=== PATIENT | female | born 1970 | race Caucasian/White ===

== ENCOUNTER 2020-07-14 12:41 | Emergency (ER) | payer OTHER ==
[2020-07-14] MEDS ORDERED: SODIUM CHLORIDE 0.9% 1,000 ML IV STA (12:58)
--- NOTE | 2020-07-14 13:41 | ED ---
General Adult HPI - General Chief complaint: Shortness of Breath Stated complaint: Covid+, SOB Time Seen by Provider: 07/14/20 12:49 Source: patient, RN notes reviewed, old records reviewed Mode of arrival: ambulatory Limitations: no limitations - History of Present Illness Initial comments: 49-year-old female presents for evaluation of fatigue, fever, cough. Patient was diagnosed with coronavirus on July 05. She states her symptom onset was 3 days prior to this. She's had a total of 14 days of symptoms. She continues to have mild dyspnea. No central chest pain. No lower leg swelling or edema. Patient is otherwise healthy. She had been placed on oral steroids, antibiotics as well. - Related Data Home Medications Medication Instructions Recorded Confirmed Albuterol Sulfate [Ventolin HFA] 2 puff INHALATION RT-QID PRN 07/14/20 07/14/20 Levothyroxine Sodium [Synthroid] 100 mcg PO DAILY 07/14/20 07/14/20 Omeprazole 40 mg PO DAILY 07/14/20 07/14/20 Ondansetron HCl [Zofran] 4 mg PO Q4H PRN 07/14/20 07/14/20 predniSONE See Taper PO DAILY 07/14/20 07/14/20 Allergies Allergy/AdvReac Type Severity Reaction Status Date / Time No Known Allergies Allergy Verified 07/14/20 13:33 Review of Systems ROS Statement: Those systems with pertinent positive or pertinent negative responses have been documented in the HPI. ROS Other: All systems not noted in ROS Statement are negative. Past Medical History Past Medical History: Thyroid Disorder History of Any Multi-Drug Resistant Organisms: None Reported Past Surgical History: Ablation Past Psychological History: No Psychological Hx Reported Smoking Status: Former smoker Past Alcohol Use History: Occasional Past Drug Use History: None Reported General Exam Limitations: no limitations General appearance: alert, in no apparent distress Head exam: Present: atraumatic, normocephalic Eye exam: Present: normal appearance, PERRL ENT exam: Present: mucous membranes dry Neck exam: Present: normal inspection. Absent: tenderness, meningismus Respiratory exam: Present: rales (Trace). Absent: respiratory distress, wheezes Cardiovascular Exam: Present: regular rate, normal rhythm GI/Abdominal exam: Present: soft. Absent: distended, tenderness Extremities exam: Present: normal inspection, normal capillary refill. Absent: pedal edema, calf tenderness Back exam: Present: normal inspection Neurological exam: Present: alert, oriented X3, CN II-XII intact. Absent: motor sensory deficit Psychiatric exam: Present: normal affect, normal mood Skin exam: Present: warm, dry, intact. Absent: cyanosis, diaphoretic Course Vital Signs 07/14/20 07/14/20 12:43 14:47 Temperature 99.3 F 99.9 F H Pulse Rate 89 80 Respiratory 18 19 Rate Blood Pressure 107/73 131/86 O2 Sat by Pulse 94 L 96 Oximetry EKG Findings - EKG Comments: EKG Findings:: EKG: Normal sinus rhythm, rate of 81, CA interval 128, QRS duration 80, QTC 455, no ST segment elevation. Medical Decision Making - Medical Decision Making 49-year-old female presenting for evaluation of fatigue, cough, patient was diagnosed with coronavirus approximately 10 days ago symptom onset was 13 days ago. She is not eligible for monoclonal antibodies are further treatment given her onset day. I did perform CT to rule out pulmonary embolism. This shows groundglass opacity consistent with coronavirus pneumonia. There is no pulmonary embolism. Patient has normal d-dimer, normal electrolytes, normal kidney function. She will continue to rest, she will continue vitamin D, zinc, vitamin C and steroids that have been prescribed by her primary care physician. She will return with worsening or changing symptoms. - Lab Data Result diagrams: 07/14/20 13:55 Lab Results 07/14/20 07/14/20 07/14/20 Range/Units 13:55 13:55 13:55 PT 10.1 (9.0-12.0) sec INR 0.9 (<1.2) APTT 24.9 (22.0-30.0) sec D-Dimer 0.41 (<0.60) mg/L FEU Sodium 137 (137-145) mmol/L Potassium 3.8 (3.5-5.1) mmol/L Chloride 99 (98-107) mmol/L Carbon Dioxide 30 (22-30) mmol/L Anion Gap 8 mmol/L BUN 7 (7-17) mg/dL Creatinine 0.55 (0.52-1.04) mg/dL Est GFR (CKD-EPI)AfAm >90 (>60 ml/min/1.73 sqM) Est GFR (CKD-EPI)NonAf >90 (>60 ml/min/1.73 sqM) Glucose 97 (74-99) mg/dL Plasma Lactic Acid David 1.4 (0.7-2.0) mmol/L Calcium 8.6 (8.4-10.2) mg/dL Total Bilirubin 0.6 (0.2-1.3) mg/dL AST 103 H (14-36) U/L ALT 65 H (4-34) U/L Alkaline Phosphatase 75 (38-126) U/L Troponin I (0.000-0.034) ng/mL Total Protein 7.2 (6.3-8.2) g/dL Albumin 4.0 (3.5-5.0) g/dL 07/14/20 Range/Units 13:55 PT (9.0-12.0) sec INR (<1.2) APTT (22.0-30.0) sec D-Dimer (<0.60) mg/L FEU Sodium (137-145) mmol/L Potassium (3.5-5.1) mmol/L Chloride (98-107) mmol/L Carbon Dioxide (22-30) mmol/L Anion Gap mmol/L BUN (7-17) mg/dL Creatinine (0.52-1.04) mg/dL Est GFR (CKD-EPI)AfAm (>60 ml/min/1.73 sqM) Est GFR (CKD-EPI)NonAf (>60 ml/min/1.73 sqM) Glucose (74-99) mg/dL Plasma Lactic Acid David (0.7-2.0) mmol/L Calcium (8.4-10.2) mg/dL Total Bilirubin (0.2-1.3) mg/dL AST (14-36) U/L ALT (4-34) U/L Alkaline Phosphatase (38-126) U/L Troponin I <0.012 (0.000-0.034) ng/mL Total Protein (6.3-8.2) g/dL Albumin (3.5-5.0) g/dL Disposition Clinical Impression: COVID-19, Pneumonia due to COVID-19 virus Disposition: HOME SELF-CARE Condition: Fair Instructions (If sedation given, give patient instructions): Coronavirus Disease 2019 (COVID-19) Is patient prescribed a controlled substance at d/c from ED?: No Referrals: Parvez Singletary DO [Primary Care Provider] - 1-2 days Time of Disposition: 15:01
[2020-07-14 14:21] LABS: ALT 65 U/L (4-34); AST 103 U/L (14-36); African American GFR (CKD) >90 (>60 ml/min/1.73 sqM); Alkaline Phosphatase 75 U/L (38-126); Anion Gap 8 mmol/L; Blood Urea Nitrogen 7 mg/dL (7-17); Calcium 8.6 mg/dL (8.4-10.2); Carbon Dioxide 30 mmol/L (22-30); Chloride 99 mmol/L (98-107); Glucose 97 mg/dL (74-99); Non-African American GFR(CKD) >90 (>60 ml/min/1.73 sqM); Potassium 3.8 mmol/L (3.5-5.1); Sodium 137 mmol/L (137-145); Total Bilirubin 0.6 mg/dL (0.2-1.3); Total Protein 7.2 g/dL (6.3-8.2)
--- NOTE | 2020-07-14 14:26 | CT ---
EXAMINATION TYPE: CT angio chest DATE OF EXAM: 07/14/2020 COMPARISON: None HISTORY: Dyspnea, +covid. CT DLP: 330.1 mGycm Automated exposure control for dose reduction was used. CONTRAST: Performed with IV Contrast, patient injected with 51ml mL of Isovue 370. There are 3-D post processed images. There is patchy interstitial and airspace infiltrates in both lungs. There is no pleural effusion. He art size is fairly normal. There is no pericardial effusion. There is no mediastinal adenopathy. There are no hilar masses. Thoracic aorta is intact. There is no aneurysm or dissection. Ascending aorta measures 3.1 cm. There is normal contrast opacification of the pulmonary arteries. There are no filling defects. Thoracic vertebra have normal alignment. There is no compression fracture. Sternum is intact. The rib s are intact. IMPRESSION: No evidence of pulmonary embolism. Patchy bilateral pneumonia.
[2020-07-14 14:32] LABS: D-Dimer 0.41 mg/L FEU (<0.60); INR 0.9 (<1.2); Partial Thromboplastin Time 24.9 sec (22.0-30.0); Prothrombin Time 10.1 sec (9.0-12.0)
[2020-07-14 14:47] VITALS: BP 131/86; PULSE 80; RESP 19; TEMP 99.9
== END 2020-07-14 15:15 | disposition home or self-care (01) ==
LOC: EC 12:41
DX: U07.1 COVID-19 (principal); J12.82 Pneumonia due to coronavirus disease 2019; E07.9 Disorder of thyroid, unspecified; Z79.890 Hormone replacement therapy; Z79.899 Other long term (current) drug therapy; Z87.891 Personal history of nicotine dependence
CPT/HCPCS: 36415; 93005; 85379; 80053; 83605; 84484; 85610; 85730; 71275; 99285; 96360; Q9967